=== PATIENT | female | born 1940 | race Caucasian/White ===

== ENCOUNTER 2018-07-14 16:05 | Emergency (ER) | payer BC, MEDICARE ==
[2018-07-14 16:13] VITALS: RESP 18
--- NOTE | 2018-07-14 16:53 | XR ---
EXAMINATION TYPE: XR ankle complete LT DATE OF EXAM: 07/14/2018 COMPARISON: NONE HISTORY: Ankle pain TECHNIQUE: 3 views FINDINGS: There is soft tissue swelling around the ankle joint. I see no fracture nor dislocation. Th ere are large plantar and Achilles calcaneal spurs. Ankle mortise is anatomic. IMPRESSION: Soft tissue swelling. No fracture.
--- NOTE | 2018-07-14 16:57 | XR ---
EXAMINATION TYPE: XR foot complete LT DATE OF EXAM: 07/14/2018 COMPARISON: NONE HISTORY: Foot pain TECHNIQUE: 3 views FINDINGS: There is soft tissue swelling of the foot. There are moderate plantar and Achilles calcanea l spurs. Metatarsals are intact. There is spurring at the first MP joint. There is spurring at the ta rsometatarsal joints. IMPRESSION: Osteoarthritis. Soft tissue swelling. No fracture seen.
--- NOTE | 2018-07-14 18:05 | US ---
EXAMINATION TYPE: US venous doppler duplex LE LT DATE OF EXAM: 07/14/2018 5:51 PM COMPARISON: NONE CLINICAL HISTORY: Pain. Patient states unable to stand on leg due to pain. Leg and ankle hurts. No blood clots. On aspirin. SIDE PERFORMED: Left. TECHNIQUE: The lower extremity deep venous system is examined utilizing real time linear array sonog rashi with graded compression, doppler sonography and color-flow sonography. VESSELS IMAGED: External Iliac Vein (EIV) Common Femoral Vein Deep Femoral Vein Greater Saphenous Vein * Femoral Vein Popliteal Vein Small Saphenous Vein * Proximal Calf Veins (* superficial vessels) Left Leg: Negative for DVT IMPRESSION: Normal left leg duplex venous sonogram.
--- NOTE | 2018-07-14 18:30 | ED ---
Extremity Problem HPI - General Chief complaint: Extremity Problem,Nontraumatic Stated complaint: Foot pain Time Seen by Provider: 07/14/18 16:16 Source: patient Mode of arrival: wheelchair Limitations: no limitations - History of Present Illness Initial comments: 78 year old female with PMH of previous Of hypertension presenting today for chief complaint of atraumatic left ankle pain. Patient states that yesterday evening her foot began to irritate her it was sore to walk on. Today the pain persisted and she thought that the left foot looked slightly larger than the right. Denies erythema, history of gout, injury or trauma to the foot, fever, chills, night sweats, pallor, cyanosis numbness, tingling or loss of sensation of the left lower extremity, mass of the calf, hx of blood clots, estrogen use, hx of cancer, recent travel. She states that the pain increased today so she presented for evaluation. Pt states that she has mild discomfort with ROM of the left ankle. Remainder of ROS (-) Patient denies any shortness of breath, chest pain, back pain, abdominal pain, nausea or vomiting, numbness or tingling , dysuria or hematuria, constipation or diarrhea, headaches or visual changes, or any other complaints. Upon arrival pt HR elevated, remainder of VS within acceptable limits. - Related Data Allergies Allergy/AdvReac Type Severity Reaction Status Date / Time Iodinated Contrast- Oral and Allergy Rash/Hives Verified 07/14/18 16:14 IV Dye Review of Systems ROS Statement: Those systems with pertinent positive or pertinent negative responses have been documented in the HPI. ROS Other: All systems not noted in ROS Statement are negative. Constitutional: Denies: fever, chills, night sweats ENT: Denies: ear pain, throat pain Respiratory: Denies: as per HPI, cough, dyspnea, wheezes, hemoptysis, stridor Cardiovascular: Denies: chest pain, palpitations Endocrine: Denies: fatigue Gastrointestinal: Denies: abdominal pain, nausea, vomiting, diarrhea, constipation, hematemesis, melena Genitourinary: Denies: urgency, dysuria Musculoskeletal: Reports: arthralgia. Denies: back pain Skin: Denies: as per HPI, rash, lesions Past Medical History Past Medical History: Hypertension History of Any Multi-Drug Resistant Organisms: None Reported Past Surgical History: Cholecystectomy, Coronary Bypass/CABG, Joint Replacement , Orthopedic Surgery Additional Past Surgical History / Comment(s): triple bypass in 96, bilateral knee replacements, bilateral cataracts Past Psychological History: No Psychological Hx Reported Smoking Status: Never smoker Past Alcohol Use History: Rare Past Drug Use History: None Reported General Exam - General Exam Comments Initial Comments: General: The patient is awake and alert, in no distress, and does not appear acutely ill. Eye: Pupils are equal, round and reactive to light, extra-ocular movements are intact. No nystagmus. There is normal conjunctiva bilaterally. No signs of icterus. Ears, nose, mouth and throat: There are moist mucous membranes and no oral lesions. Neck: The neck is supple, there is no tenderness or JVD. Cardiovascular: There is a regular rate and rhythm. No murmur, rub or gallop is appreciated. Respiratory: Lungs are clear to auscultation, respirations are non-labored, breath sounds are equal. No wheezes, stridor, rales, or rhonchi. Musculoskeletal: Normal ROM at the ankle b/l, no tenderness with ROM of the left mild noted with the right. Strength 5/5 with all ROM of the ankles b/l equally.. Sensation intact of the LE and foot equal b/l. DP pulses equal bilaterally 2+. No pitting edema noted. No noted soft tissue swelling, legs/ ankle/feet appear equal bilaterally. Pt obese. No masses/erythema of calf. No color changes of skin. No warmth to palpation. Pt does complain of mild pain to palpation of right posterior calf. (-) Homans. Achilles tendon is palpable no defects Neurological: A&O x 3. CN II-XII intact, There are no obvious motor or sensory deficits. Coordination appears grossly intact. Speech is normal. Skin: Skin is warm and dry and no rashes or lesions are noted. Psychiatric: Cooperative, appropriate mood & affect, normal judgment. Limitations: no limitations Course Vital Signs 07/14/18 07/14/18 16:08 19:32 Temperature 98.1 F 97.3 F L Pulse Rate 107 H 78 Respiratory 18 18 Rate Blood Pressure 177/83 148/72 O2 Sat by Pulse 100 98 Oximetry Medical Decision Making - Medical Decision Making X-ray of ankle and foot negative. Patient neurovascularly intact. Ultrasound obtained due to patient complaint of swelling left foot, negative for DVT. There are no clinical signs worrisome for sialitis at this time. No warmth or erythema, patient afebrile. At this time feel patient pain could be due to arthritis from morbid obesity , or possible ligamentous injury. However there was no noted laxity on exam or crepitus. Patient was placed in Anirudh bandage, she states she has a walking boot at home which she will use for ambulation. I instructed patient to follow-up with orthopedic surgery in the next 1-2 days for evaluation. Patient is agreeable to plan. I instructed patient to take ibuprofen for anti-inflammatory properties every 8 hours as needed for pain as well as Rice instructions. Patient is agreeable with plan, she states she is ready for discharge. Case discussed in detail with who agreed with impression and plan. Pt discharged in stable condition. Disposition Clinical Impression: Left ankle pain, Left foot pain Disposition: HOME SELF-CARE Condition: Good Instructions: Plantar Fasciitis (ED), Arthralgia (ED) Additional Instructions: Please use medication as discussed. Please follow-up with family doctor in the next 2 days. Please follow-up with orthopedic surgery in the next 2-3 days. Please use crutches for ambulation. Please return to emergency room if the symptoms increase or worsen or for any other concerns. Is patient prescribed a controlled substance at d/c from ED?: No Referrals: Pravin Rollins MD [Primary Care Provider] - 1-2 days Serg Meredith MD [STAFF PHYSICIAN] - 1-2 days Time of Disposition: 18:30
[2018-07-14 19:33] VITALS: BP 148/72; PULSE 78; TEMP 97.3
== END 2018-07-14 19:32 | disposition home or self-care (01) ==
LOC: EC 16:05
DX: M25.572 Pain in left ankle and joints of left foot (principal); M79.605 Pain in left leg; E66.01 Morbid (severe) obesity due to excess calories; Z68.42 Body mass index [BMI] 45.0-49.9, adult; Z91.041 Radiographic dye allergy status; Z95.1 Presence of aortocoronary bypass graft; Z96.653 Presence of artificial knee joint, bilateral
CPT/HCPCS: 99284

== ENCOUNTER → 2021-02-19 | Outpatient (CLI) | payer MEDICARE ==
--- NOTE | 2021-02-19 17:36 | CONS ---
CONSULTATION DATE OF SERVICE: 02/19/2021. HISTORY: A 10-year-old lady has been evaluated in the sleep center for possible obstructive sleep apnea-hypopnea syndrome. HISTORY OF PRESENT ILLNESS/SLEEP AWAKE EVALUATION: Patient has history of obstructive sleep apnea diagnosed about 20 years ago in another institution. At that time, she apparently was not able to use the CPAP equipment. Presently schedule from 4 a.m. until 10:30 a.m. She does have problems with falling asleep although no TV in bedroom. Sleeps on the side position. According to her family, she has extremely loud snoring and she wakes up from sleep 5 times with nocturia. She tosses and turns during the night. No history of hypnagogic hallucinations, sleep paralysis or cataplexy. In the morning the patient wakes up tired, falling asleep during the day. [place] Sleepiness Scale is 7. She sometimes takes naps around 3 to 4 p.m.. She drinks one caffeinated beverage during the day. PAST MEDICAL HISTORY: Positive for hypertension, coronary artery disease, joint problems, hyperlipidemia. PAST SURGICAL HISTORY: Coronary artery bypass graft, bilateral knee replacement, total hysterectomy. MEDICATIONS: Isosorbide 30 mg once a day, Zetia 10 mg once a day, enalapril hydrochlorothiazide 10- 25 mg once a day, metoprolol 50 mg once a day, simvastatin 40 mg once a day, aspirin 325 mg once a day, multivitamins. Vitamin D3, B complex. SOCIAL HISTORY: Negative for smoking or using alcohol. FAMILY HISTORY: Positive for stroke. REVIEW OF SYSTEMS: Multiple awakenings from sleep. PHYSICAL EXAMINATION: GENERAL: A 80-year-old lady without distress. BP 164/86, HR 85, RR 15, height 5 feet 3 inches, weight 272.2. Body mass index 48.1, temperature 97.5, oxygen saturation at room air 98%. HEENT: PERRLA, EOMI. Oropharynx extremely low position of soft palate. Mallampati 4. NECK: Wide 18-1/4 inches in circumference. LUNGS: Clear to percussion and to auscultation. Good air exchange. HEART: S1, S2 regular. No murmurs, gallops, or rubs. ABDOMEN: Soft and nontender. Bowel sounds are present. No organomegaly appreciated. EXTREMITIES: No clubbing or cyanosis. RECORD CHANGER: Awake, alert, and oriented X3. Cranial nerves 2 to 7 intact. There is no fasciculation or atrophy. noted. No focal deficits observed. IMPRESSION: 1. Loud snoring, awakenings from sleep with nocturia 5 times at night. Extremely low position of soft palate, Mallampati 4, wide neck 18-1/4 inches in circumference. History of obstructive sleep apnea 20 years ago. Obstructive sleep apnea-hypopnea syndrome. 2. Obesity BMI 48.1. 3. Hypertension. 4. Coronary artery disease, status post CABG 5. 5. Status post bilateral knee replacement. 6. Status post bilateral cataract surgery. 7. Status post total hysterectomy. 8. Hyperlipidemia. 9. Back arthritis. 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 PLAN: 1. Polysomnography for evaluation of patient's breathing during sleep. 2. CPAP/BiPAP titration if sleep study confirms obstructive sleep apnea-hypopnea syndrome. 3. Preferable position during sleep on the side. 4. No driving if patient feels any sleepiness. 5. I will see patient for follow up visit to explain results of testing and following plan. Thank you very much for asking me to see this patient in consultation. Armand Lehman MD, PhD, FAASM Diplomat of [employer] Manager [facility] [place] MMODL / IJN: [id number] /
== END ==
LOC: SLEEP 15:00
PROVIDERS: ATTEND Internal Medicine
DX: G47.33 Obstructive sleep apnea (adult) (pediatric) (principal); E66.9 Obesity, unspecified; I10 Essential (primary) hypertension; M47.9 Spondylosis, unspecified; M19.049 Primary osteoarthritis, unspecified hand; I25.10 Atherosclerotic heart disease of native coronary artery without angina pectoris; R35.1 Nocturia; E78.5 Hyperlipidemia, unspecified; Z95.1 Presence of aortocoronary bypass graft; Z68.42 Body mass index [BMI] 45.0-49.9, adult; Z96.651 Presence of right artificial knee joint; Z96.652 Presence of left artificial knee joint; Z98.41 Cataract extraction status, right eye; Z98.42 Cataract extraction status, left eye; Z90.711 Acquired absence of uterus with remaining cervical stump; Z91.041 Radiographic dye allergy status
CPT/HCPCS: 99211

== ENCOUNTER → 2021-11-20 | Outpatient (CLI) | payer MEDICARE ==
--- NOTE | 2021-11-20 16:20 | SFUN ---
SLEEP CENTER FOLLOW UP NOTE DATE OF SERVICE: 11/20/2021 81-year-old lady has been followed in Sleep Center for treatment of obstructive sleep apnea-hypopnea syndrome. Recently the patient had a polysomnogram and CPAP titration and I discussed results of sleep study with patient in detail. She has extremely severe obstructive sleep apnea with extremely severe oxygen desaturation. Subsequently, she was started on treatment with CPAP. Today is her first visit why she started treatment. She sleeps better with CPAP. She feels better during the day. [place] Sleepiness Scale today is 3 which is normal. The patient has had some problems with the humidity. She tried to increase humidity because developed dryness but then when humidity is increased and she does not have dryness, she developed some sounds related to the machine. I checked her CPAP unit. Range of the pressure 5-15, average pressure 11.4-12.5. Apnea- hypopnea index 2.3 which is totally normal. Leak is 1.9 only which is good because patient is using fullface mask. MEDICATIONS: Isosorbide, Zetia, enalapril, metoprolol, simvastatin, aspirin. PHYSICAL EXAMINATION: GENERAL: Patient in no distress. BP 142/72, HR 80, RR 16, weight 272.6, temperature 97.3, oxygen saturation at room air 97%. Oropharynx: Extremely low position of soft palate, Mallampati 4. NECK: Supple, no JVD. Thyroid is not palpable. LUNGS: Clear to percussion and to auscultation. Good air exchange. No wheezing or rhonchi. HEART: S1, S2 regular. No murmurs, gallops, or rubs. ABDOMEN: Obese. Soft and nontender. Bowel sounds are present. No organomegaly appreciated. EXTREMITIES: No clubbing or cyanosis. [employer]: Awake, alert, and oriented X3. Cranial nerves 2 to 7 intact. There is no fasciculation or atrophy. noted. No focal deficits observed. IMPRESSION: 1. Severe obstructive sleep apnea-hypopnea syndrome apnea-hypopnea index 68.2 with oxygen desaturation to extremely low 49.5. The patient demonstrated 100% compliance with treatment benefitting from treatment. 2. Some problems related to adjustments of humidity. 3. Obesity. 4. Hypertension. 5. Coronary artery disease, status post coronary artery bypass grafting. 6. Status post bilateral knee replacement. 7. Status post bilateral cataract surgery. 8. Status post total hysterectomy. 9. Hyperlipidemia. 10.Back arthritis. 11.Hand arthritis. PLAN: 1. I discussed with the patient in detail adjustments of temperature in humidifier and in heated tube. Temp in heated tube possibly needs to be increased to prevent any condensation. 2. Position of the tube should be directly from the mask down to the machine. The loops in the tube could be replaced for the condensation of water and subsequently additional sound. 3. Patient will continue to use PAP equipment every night for the whole night. 4. Sleep hygiene with regular time in bed for at least 7-1/2 to 8 hours. 5. Precautions related to driving. No driving if feeling sleepiness. 6. I will maintain all necessary prescription for PAP supplies including mask, tube, filters. 7. Watching weight. 8. Follow-up visit in 6 months or earlier if patient has any problems. Thank you very much for allowing me to participate in management of your patient. Sincerely, Armand Lehman MD, PhD, FAASM Diplomat of [place] [employer] Sleep Medicine Board of [place] [employer] Record Clerk of [facility] [place] MMODL / SARAHN: [id number] /
== END ==
LOC: SLEEP 13:16
PROVIDERS: ATTEND Internal Medicine
DX: G47.33 Obstructive sleep apnea (adult) (pediatric) (principal); G47.36 Sleep related hypoventilation in conditions classified elsewhere; E66.9 Obesity, unspecified; I10 Essential (primary) hypertension; I25.10 Atherosclerotic heart disease of native coronary artery without angina pectoris; Z95.1 Presence of aortocoronary bypass graft; Z96.643 Presence of artificial hip joint, bilateral; Z90.711 Acquired absence of uterus with remaining cervical stump; E78.5 Hyperlipidemia, unspecified; M47.9 Spondylosis, unspecified; M19.049 Primary osteoarthritis, unspecified hand; Z98.41 Cataract extraction status, right eye; Z98.42 Cataract extraction status, left eye; Z99.89 Dependence on other enabling machines and devices; Z91.041 Radiographic dye allergy status

== ENCOUNTER → 2022-06-25 | Outpatient (CLI) | payer MEDICARE ==
--- NOTE | 2022-06-25 12:04 | P.PN ---
Subjective DATE: 06/25/2022 FOLLOW UP VISIT. Patient with obstructive sleep apnea hypopnea syndrome return to sleep center for follow-up visit. Information from previous visit have been reviewed. Patient is using PAP equipment but not every night. She has problems related to a day humidifier and condensation of water in the tube. The patient does not have significant problems with the mask, PAP unit and humidification. [place] sleepiness scale is 2, which is normal. I checked PAP unit. PAP unit pressure 5-15 cm of water, average 12.1 cm H2O. Usage is 70 % for more then 4 hours, average 5.5 hours per night. Leak is 3.0 l/m, which is in good range. Apnea Hypopnea Index is 2.7, which is normal. MEDICATIONS:1. Isosorbide 2. Zetia 3. enalapril 4. Metoprolol 5. Simvastatin 6. Aspirin During physical exam: GENERAL: A pleasant patient without any distress. VITAL SIGNS: BP 168/78, HR 89, RR 16, weight 248.4, temperature 97.0, oxygen saturation at room air 98 % . HEENT: PERRLA, EOMI.low position of soft palate, Mallapati 4 . NECK: Supple. No JVD. LUNGS: Clear to percussion and to auscultation. Good air exchange. No wheezing or rhonchi. HEART: S1, S2 regular. ABDOMEN: Soft and nontender. Obese EXTREMITIES: No clubbing or cyanosis. OYSTER GROWER: Awake, alert, and oriented x3. No focal deficit. Impressions: 1. Obstructive sleep apnea-hypopnea syndrome. Patient demonstrated borderline compliance with treatment, benefiting from treatment. Patient continued to have some problems related to humidity. 2. Obesity. 3. Hypertension. 4. Coronary artery disease status post the coronary artery bypass graft.. 5. Status post bilateral knee replacement. 6. Status post bilateral cataract surgery. 7. Status post total hysterectomy. 8. Hyperlipidemia. 9. Back arthritis. 10. Hand arthritis. Plan: 1. Continue using PAP equipment every night for the whole night. I again discussed with patient in details about adjustments of temperature and humidifier and in the tube. I teach her how to adjust of this parameters in the machine. Level of humidity was increased to 6, temperature in the tube was increased to 84, ramp was changed to automatic regimen. 2. To change air filter at least 1-2 times per month. 3. PAP unit should stay lower then position of the head. 4. Advised patient to remove all remaining water from humidifier canister daily and make it dry after each usage. Refill canister with fresh distilled water before each usage. 5. Sleep hygiene with regular time in bed for at least 8 hours. 6. Precautions related to driving. No driving if feel any sleepiness. 7. I will maintain prescription for PAP supplies including mask, tube, filters. 8. Follow up visit in 6 months or earlier if patient has any problems. 9. Watching and losing weight. Thank you very much for allowing me to participate in the management of your patient. Armand Lehman MD, PhD, FAASM. Diplomat of [place] [employer], Sleep Medicine Board by [place] [employer] Quality Assurance/R&D Lab Technician of [facility] [place]
== END ==
LOC: SLEEP 11:15
PROVIDERS: ATTEND Internal Medicine
DX: G47.33 Obstructive sleep apnea (adult) (pediatric) (principal); E66.9 Obesity, unspecified; I10 Essential (primary) hypertension; I25.10 Atherosclerotic heart disease of native coronary artery without angina pectoris; E78.5 Hyperlipidemia, unspecified; Z99.89 Dependence on other enabling machines and devices; I25.810 Atherosclerosis of coronary artery bypass graft(s) without angina pectoris; Z79.899 Other long term (current) drug therapy; Z79.82 Long term (current) use of aspirin; M19.049 Primary osteoarthritis, unspecified hand; M46.96 Unspecified inflammatory spondylopathy, lumbar region; Z90.710 Acquired absence of both cervix and uterus; Z98.49 Cataract extraction status, unspecified eye; Z96.653 Presence of artificial knee joint, bilateral; Z91.041 Radiographic dye allergy status
CPT/HCPCS: 99212

== ENCOUNTER → 2023-08-26 | Outpatient (CLI) | payer MEDICARE ==
--- NOTE | 2023-08-26 11:38 | CT ---
EXAMINATION TYPE: CT chest wo con DATE OF EXAM: 08/26/2023 COMPARISON: NONE HISTORY: pain in sternum. hx open heart surgery. pt describes the calcification on her sternum as get ting larger over the years and is now causing her discomfort. CT DLP: 477.9 mGycm. Automated Exposure Control for Dose Reduction was Utilized. TECHNIQUE: CT scan of the thorax is performed without IV contrast. FINDINGS: LUNGS: The lungs are grossly clear, there is no concerning parenchymal mass or nodule identified. T here is no pleural effusion or pneumothorax seen. The tracheobronchial tree is patent. MEDIASTINUM: Post CABG changes with sternal wires and mediastinal clips are present. Lack of IV contr ast is noted to limit evaluation for mediastinal and especially hilar adenopathy. There are no defini tive greater than 1 cm mediastinal lymph nodes. No cardiomegaly or pericardial effusion is seen. OTHER: There is dextroconvex scoliosis centered in the mid to lower thoracic spine. Surgical change t o the lumbar spine is partially imaged on localizer. There are multilevel spurs and bridging osteophy iwona in the thoracic spine greatest anteriorly and along the right aspect. Subcentimeter calcification in the liver axial image 56 is presumed benign. Cholecystectomy clips are present. There is 3.6 cm simple appearing thin-walled cyst in the left kidney posteriorly axial imag e 66. Moderate calcified plaque in the aorta is noted. IMPRESSION: No suspicious acute or chronic pulmonary process. Post-CABG changes with satisfactory hea ling of the sternum noted.
== END | disposition home or self-care (01) ==
LOC: RADCTMAIN 10:42
PROVIDERS: ATTEND Family Medicine
DX: Q76.7 Congenital malformation of sternum (principal); Z95.1 Presence of aortocoronary bypass graft
CPT/HCPCS: 71250